=== PATIENT | male | born 1980 | race Two or more races ===

== ENCOUNTER 2023-04-01 09:39 | Inpatient (IN) | payer MEDICAID, OTHER ==
[~2023-04-01] VITALS: Ht 172.7 cm; Wt 69.6 kg
[2023-04-01 10:18] LABS: Basophils # (auto) 0 10 ^3/uL (0-0.2); Basophils % (auto) 0.4 % (0.0-2.0); Eosinophils # (auto) 0 10 ^3/uL (0-0.8); Eosinophils % (auto) 0.4 % (0.0-7.0); Hematocrit 43.1 % (41.0-53.0); Hemoglobin 14.5 g/dL (13.5-17.5); Lymphocytes # (auto) 2.1 10 ^3/uL (0.4-5.4); Lymphocytes % (auto) 17.7 % (10.0-50.0); Mean Corpuscular Hemoglobin 30.7 pg (28.0-32.0); Mean Corpuscular Hgb Conc. 33.6 g/dL (32.0-36.0); Mean Corpuscular Volume 91.3 fL (80.0-100.0); Monocytes # (auto) 0.9 10 ^3/uL (0-1.3); Monocytes % (auto) 7.7 % (0.0-12.0); Neutrophils # (auto) 8.7 10 ^3/uL (1.6-8.6); Neutrophils % (auto) 73.8 % (37.0-80.0); Nucleated Red Blood Cells % 0.1 %; Red Blood Cells 4.72 10^6/uL (4.5-5.90); Red Cell Distribution Width 14.2 % (11.8-14.3); White Blood Cell 11.7 10^3/uL (4.4-10.8)
[2023-04-01 10:57] LABS: Alanine Aminotransferase 42 U/L (7-40); Alkaline Phosphatase 62 U/L (46-116); Anion Gap 7 (5-15); Aspartate Aminotransferase 26 U/L (13-40); BUN/Creatinine Ratio 16.1 (10.0-20.0); Blood Urea Nitrogen 14 mg/dL (9-23); Calcium 8.7 mg/dL (8.7-10.4); Carbon Dioxide 26 mmol/L (20-30); Chloride 105 mmol/L (98-107); Glucose 103 mg/dL (74-106); Potassium 4.5 mmol/L (3.5-5.1); Sodium 138 mmol/L (136-145)
[2023-04-01 10:58] LABS: Bilirubin, Total 0.6 mg/dL (0.2-1.0); Total Protein 6.6 g/dL (5.7-8.2)
[2023-04-01 11:03] LABS: Urine Bacteria NONE SEEN /hpf (None Seen); Urine Blood Negative /uL (Negative); Urine Clarity Clear (Clear); Urine Color Yellow (Yellow); Urine Mucus FEW (None Seen); Urine Protein, UAD TRACE (Negative); Urine Specific Gravity 1.028 (1.001-1.035); Urine WBC 1 /hpf (0 - 3); Urine pH 6.5 (5.0-8.0)
[2023-04-01 12:12] LABS: Amphetamine Screen, Urine Pos (NEGATIVE); Barbiturate Scree,Urine Neg (NEGATIVE); Benzodiazephine Screen, Urine Neg (NEGATIVE); Cocaine Screen, Urine Neg (NEGATIVE)
[2023-04-01 12:13] LABS: Cannabinoid Screen, Urine Pos (NEGATIVE); Opiate Scree,Urine Neg (NEGATIVE); Phencyclidine Screen, Urine Neg (NEGATIVE)
[2023-04-01] MEDS ORDERED: cefTRIAXone 1GM/50ML D5W 50 ML IV ONE (13:00)
[2023-04-01] MEDS ORDERED: IOHEXOL 350 MG/ML 100ML IJ ONE (13:14)
[2023-04-01] MEDS ORDERED: ACETAMINOPHEN 325 MG TAB PO PRN ×2 (18:30→19:30)
[2023-04-01] MEDS: SODIUM CHLORIDE 0.9% 1,000 ML IV SCH ×2 (18:30→21:42)
[2023-04-01 19:54] LABS: Triglycerides 91 mg/dL (< 150)
[2023-04-01 19:55] LABS: LDL Cholesterol 107 mg/dL (< 100)
[2023-04-01 19:56] LABS: Cholesterol 140 mg/dL (< 200); HDL Cholesterol 31 mg/dL (40-59)
[2023-04-01] MEDS ORDERED: ENOXAPARIN SOD 100 MG/1 ML SYRINGE SC SCH (22:00)
[2023-04-01] MEDS ORDERED: ASPirin 325 MG TAB PO ONE (22:15)
[2023-04-01 22:23] LABS: COVID19 ANTIGEN SOFIA FIA NEGATIVE (NEGATIVE)
[2023-04-01 23:30] VITALS: PULSE 110; RESP 22; O2SAT 90
[2023-04-02] VITALS (12 sets, daily range): BP systolic 118–138; BP diastolic 97–99; PULSE 101–134; RESP 16–24; TEMP 98.4; O2SAT 93–100
[2023-04-02] MEDS: SODIUM CHLORIDE 0.9% 1,000 ML IV SCH ×3 (01:08→22:36)
[2023-04-02 02:01] LABS: Base Excess 0.6 mmol/L (-2.0-2.0)
[2023-04-02 06:17] LABS: Basophils # (auto) 0 10 ^3/uL (0-0.2); Eosinophils # (auto) 0.1 10 ^3/uL (0-0.8); Eosinophils % (auto) 0.9 % (0.0-7.0); Monocytes # (auto) 1.1 10 ^3/uL (0-1.3); Monocytes % (auto) 8.6 % (0.0-12.0); Nucleated Red Blood Cells % 0.1 %
[2023-04-02 06:20] LABS: Basophils % (auto) 0.1 % (0.0-2.0); Hematocrit 44.6 % (41.0-53.0); Hemoglobin 14.1 g/dL (13.5-17.5); Lymphocytes # (auto) 2.2 10 ^3/uL (0.4-5.4); Lymphocytes % (auto) 17.7 % (10.0-50.0); Mean Corpuscular Hemoglobin 30.6 pg (28.0-32.0); Mean Corpuscular Hgb Conc. 31.5 g/dL (32.0-36.0); Neutrophils # (auto) 9.2 10 ^3/uL (1.6-8.6); Neutrophils % (auto) 72.7 % (37.0-80.0); Red Cell Distribution Width 15.3 % (11.8-14.3); White Blood Cell 12.7 10^3/uL (4.4-10.8)
[2023-04-02 06:26] LABS: Alanine Aminotransferase 36 U/L (7-40); Albumin 3.4 g/dL (3.2-4.8); Alkaline Phosphatase 57 U/L (46-116); Aspartate Aminotransferase 30 U/L (13-40); BUN/Creatinine Ratio 13.6 (10.0-20.0); Bilirubin, Total 0.3 mg/dL (0.2-1.0); Blood Urea Nitrogen 11 mg/dL (9-23); Carbon Dioxide 20 mmol/L (20-30); Glucose 89 mg/dL (74-106); Total Protein 5.8 g/dL (5.7-8.2)
[2023-04-02 06:42] LABS: Anion Gap 8 (5-15); Chloride 111 mmol/L (98-107); Potassium 4.7 mmol/L (3.5-5.1); Sodium 139 mmol/L (136-145)
[2023-04-02] MEDS: ALBUTEROL MEDNEB 2.5 mg/3ml NEB NEB PRN ×2 (07:51→11:52)
[2023-04-02] MEDS: IPRATROPIUM BROM 0.5 MG/2.5ML INH SOL NEB PRN ×2 (07:51→11:52)
[2023-04-02] MEDS ORDERED: hydrALAZINE HCL 20 MG/ML VL IV PRN (09:00)
[2023-04-02] MEDS ORDERED: ENOXAPARIN SOD 40 MG/0.4 ML SYRINGE SC SCH (10:00)
[2023-04-02] MEDS: cefTRIAXone 1GM/50ML D5W 50 ML IV SCH (10:29)
[2023-04-02] MEDS: ASPirin 81 mg TAB PO SCH (11:00)
[2023-04-02] MEDS: ENOXAPARIN SOD 80 MG/0.8ML SYRINGE SC SCH ×2 (11:01→22:18)
[2023-04-02] MEDS: AZITHROMYCIN 500MG/ 250ML 250 ML IV SCH (11:41)
[2023-04-02 17:10] LABS: Lactic Acid w/Reflex 2.4 mmol/L (0.4-2.0)
[2023-04-02] MEDS: HYDROcodone-ACET 5/325MG TAB PO PRN ×2 (17:45→22:17)
[2023-04-02] MEDS: METOPROLOL TARTRATE 25 MG TAB PO SCH (22:22)
[2023-04-02] MEDS ORDERED: FURO20TA3 PO (22:39)
[2023-04-03] VITALS (33 sets, daily range): BP systolic 90–124; BP diastolic 55–88; PULSE 87–120; RESP 16–36; TEMP 96.7–97.6; O2SAT 91–100
[2023-04-03] MEDS: HYDROcodone-ACET 5/325MG TAB PO PRN (02:57)
[2023-04-03 07:06] LABS: Basophils # (auto) 0.1 10 ^3/uL (0-0.2); Basophils % (auto) 0.6 % (0.0-2.0); Eosinophils # (auto) 0.1 10 ^3/uL (0-0.8); Eosinophils % (auto) 0.7 % (0.0-7.0); Hemoglobin 13.5 g/dL (13.5-17.5); Lymphocytes # (auto) 2.1 10 ^3/uL (0.4-5.4); Lymphocytes % (auto) 16.8 % (10.0-50.0); Mean Corpuscular Hemoglobin 30.5 pg (28.0-32.0); Mean Corpuscular Hgb Conc. 33.6 g/dL (32.0-36.0); Mean Corpuscular Volume 90.6 fL (80.0-100.0); Monocytes # (auto) 1.1 10 ^3/uL (0-1.3); Monocytes % (auto) 8.7 % (0.0-12.0); Neutrophils % (auto) 73.2 % (37.0-80.0); Red Blood Cells 4.42 10^6/uL (4.5-5.90); Red Cell Distribution Width 14.1 % (11.8-14.3); White Blood Cell 12.3 10^3/uL (4.4-10.8)
[2023-04-03 07:26] LABS: Alanine Aminotransferase 28 U/L (7-40); Albumin 2.7 g/dL (3.2-4.8); Alkaline Phosphatase 66 U/L (46-116); Anion Gap 11 (5-15); Aspartate Aminotransferase 15 U/L (13-40); BUN/Creatinine Ratio 33.3 (10.0-20.0); Blood Urea Nitrogen 17 mg/dL (9-23); Calcium 6.5 mg/dL (8.5-10.1); Carbon Dioxide 19 mmol/L (20-30); Chloride 108 mmol/L (98-107); Glucose 81 mg/dL (74-106); Sodium 138 mmol/L (136-145)
[2023-04-03 07:27] LABS: Bilirubin, Total 0.5 mg/dL (0.2-1.0); Total Protein 4.3 g/dL (5.7-8.2)
[2023-04-03] MEDS: cefTRIAXone 1GM/50ML D5W 50 ML IV SCH (08:59)
[2023-04-03] MEDS: AZITHROMYCIN 500MG/ 250ML 250 ML IV SCH (08:59)
[2023-04-03] MEDS: ENOXAPARIN SOD 80 MG/0.8ML SYRINGE SC SCH ×2 (08:59→21:46)
[2023-04-03] MEDS: PANTOPRAZOLE 40 MG TAB PO SCH (09:00)
[2023-04-03] MEDS: ASPirin 81 mg TAB PO SCH (09:00)
[2023-04-03] MEDS: METOPROLOL TARTRATE 25 MG TAB PO SCH ×2 (09:00→21:46)
[2023-04-03] MEDS: SODIUM CHLORIDE 0.9% 1,000 ML IV SCH (09:01)
[2023-04-03] MEDS: IPRATROPIUM BROM 0.5 MG/2.5ML INH SOL NEB PRN (11:36)
[2023-04-03] MEDS: ALBUTEROL MEDNEB 2.5 mg/3ml NEB NEB PRN (11:36)
[2023-04-03] MEDS ORDERED: LORazepam 2MG/ML-1ML VIAL IV ONE (11:45)
[2023-04-03 13:01] LABS: Base Excess -6.4 mmol/L (-2.0-2.0)
[2023-04-03] MEDS ORDERED: ETOMIDATE (2MG/ML) 20ML VIAL IV ONE (14:11)
[2023-04-03] MEDS ORDERED: ROCURONIUM 10MG/ML 10ML VIAL IV ONE (14:11)
[2023-04-03] MEDS ORDERED: fentaNYL Drip 2500mCg/250mlNS 0 ML IV ONE (14:13)
[2023-04-03] MEDS ORDERED: MIDAZOLAM DRIP 50 mg/50mL 0 ML IV ONE (14:13)
[2023-04-03] MEDS ORDERED: LIDOCAINE 2%HCL (LOCAL ANESTH.) INJ 20ML MDV ONE (16:37)
[2023-04-03] MEDS ORDERED: IODIXANOL 320MG/ML 100ML BTL IV ONE (16:37)
[2023-04-03] MEDS ORDERED: fentaNYL CITRATE 100 MCG/2 ML VL ONE (16:46)
[2023-04-03] MEDS ORDERED: MIDAZOLAM HCL 2MG/2ML 2ml VIAL (1mg/ml) ONE (16:46)
[2023-04-03] MEDS ORDERED: ANGIOMAX 250 MG VIAL IV ONE (16:46)
[2023-04-03] MEDS ORDERED: SODIUM CHL 0.9% 0 ML ONE (16:46)
[2023-04-03] MEDS ORDERED: HEPARIN SODIUM (PORCINE) 5000 UNITS/ML 1ML VIAL ONE (16:46)
[2023-04-03] MEDS ORDERED: VERAPAMIL 2.5MG/ML INJ 2ML VIAL IV ONE (16:47)
[2023-04-03] MEDS ORDERED: FUROSEMIDE 20 MG/2 ML VIAL ONE ×2 (17:12→17:13)
[2023-04-03] MEDS ORDERED: DOBUTamine 1000MCG/ML 250 ML IV ONE (17:13)
[2023-04-03] MEDS: FUROSEMIDE 20 MG/2 ML VIAL IV SCH (20:43)
[2023-04-03] MEDS: DOBUTamine 1000MCG/ML 250 ML IV SCH (20:45)
[2023-04-03] MEDS ORDERED: SACUBITRIL-VALSARTAN 24mg/26mg TAB PO SCH (22:00)
[2023-04-04] VITALS (101 sets, daily range): BP systolic 64–128; BP diastolic 41–93; PULSE 83–117; RESP 12–36; TEMP 97–98.1; O2SAT 79–100
[2023-04-04] MEDS: DOBUTamine 1000MCG/ML 250 ML IV SCH ×3 (04:57→21:26)
[2023-04-04 05:16] LABS: Basophils # (auto) 0 10 ^3/uL (0-0.2); Basophils % (auto) 0.4 % (0.0-2.0); Eosinophils # (auto) 0.1 10 ^3/uL (0-0.8); Eosinophils % (auto) 0.6 % (0.0-7.0); Hematocrit 38.9 % (41.0-53.0); Hemoglobin 12.9 g/dL (13.5-17.5); Lymphocytes # (auto) 2.7 10 ^3/uL (0.4-5.4); Lymphocytes % (auto) 22.2 % (10.0-50.0); Mean Corpuscular Hgb Conc. 33.3 g/dL (32.0-36.0); Mean Corpuscular Volume 90.1 fL (80.0-100.0); Monocytes # (auto) 1.3 10 ^3/uL (0-1.3); Monocytes % (auto) 10.3 % (0.0-12.0); Neutrophils # (auto) 8.1 10 ^3/uL (1.6-8.6); Neutrophils % (auto) 66.5 % (37.0-80.0); Nucleated Red Blood Cells % 0.1 %; Red Blood Cells 4.31 10^6/uL (4.5-5.90); Red Cell Distribution Width 14.2 % (11.8-14.3); White Blood Cell 12.2 10^3/uL (4.4-10.8)
[2023-04-04 05:33] LABS: Alanine Aminotransferase 337 U/L (7-40); Albumin 3.2 g/dL (3.2-4.8); Alkaline Phosphatase 53 U/L (46-116); Anion Gap 8 (5-15); Aspartate Aminotransferase 391 U/L (13-40); BUN/Creatinine Ratio 19.4 (10.0-20.0); Bilirubin, Total 0.7 mg/dL (0.2-1.0); Blood Urea Nitrogen 18 mg/dL (9-23); Calcium 7.6 mg/dL (8.7-10.4); Carbon Dioxide 26 mmol/L (20-30); Chloride 105 mmol/L (98-107); Glucose 93 mg/dL (74-106); Sodium 139 mmol/L (136-145); Total Protein 5.3 g/dL (5.7-8.2)
[2023-04-04] MEDS: FUROSEMIDE 20 MG/2 ML VIAL IV SCH ×2 (06:31→18:41)
[2023-04-04] MEDS: EMPAGLIFLOZIN 10 MG TAB PO SCH (06:32)
[2023-04-04] MEDS: SODIUM CHLORIDE 0.9% 1,000 ML IV SCH (06:49)
[2023-04-04] MEDS: ASPirin 81 mg TAB PO SCH (09:48)
[2023-04-04] MEDS: cefTRIAXone 1GM/50ML D5W 50 ML IV SCH (09:48)
[2023-04-04] MEDS: PANTOPRAZOLE 40 MG TAB PO SCH (09:48)
[2023-04-04] MEDS: METOPROLOL TARTRATE 25 MG TAB PO SCH (09:48)
[2023-04-04] MEDS: AZITHROMYCIN 500MG/ 250ML 250 ML IV SCH (10:00)
[2023-04-04] MEDS: NOREPINEPHRINE 8 MG/250ML KIT 250 ML IV SCH ×2 (11:30→20:57)
[2023-04-04] MEDS ORDERED: NOREPINEPHRINE 8 MG/250ML KIT 250 ML IV ONE (11:32)
[2023-04-04] MEDS: ALBUTEROL MEDNEB 2.5 mg/3ml NEB NEB PRN (12:08)
[2023-04-04] MEDS: IPRATROPIUM BROM 0.5 MG/2.5ML INH SOL NEB PRN (12:08)
[2023-04-04 13:24] LABS: INR 1.19 (0.9-1.15); Partial Thromboplastin Time 26.6 SEC (24.5-34.5); Prothrombin Time 12.4 sec (9.3-11.8)
[2023-04-04] MEDS ORDERED: LIDOCAINE 1% (LOCAL ANESTH.) PF 5ml SDV ID ONE (15:45)
[2023-04-05] VITALS (68 sets, daily range): BP systolic 91–131; BP diastolic 53–95; PULSE 99–121; RESP 11–34; TEMP 97.5–98.7; O2SAT 88–100
[2023-04-05 05:12] LABS: Basophils # (auto) 0 10 ^3/uL (0-0.2); Basophils % (auto) 0.4 % (0.0-2.0); Eosinophils # (auto) 0.1 10 ^3/uL (0-0.8); Hematocrit 39.1 % (41.0-53.0); Hemoglobin 12.8 g/dL (13.5-17.5); Lymphocytes # (auto) 1.6 10 ^3/uL (0.4-5.4); Lymphocytes % (auto) 13.6 % (10.0-50.0); Mean Corpuscular Hemoglobin 29.7 pg (28.0-32.0); Mean Corpuscular Hgb Conc. 32.8 g/dL (32.0-36.0); Mean Corpuscular Volume 90.6 fL (80.0-100.0); Monocytes % (auto) 8.7 % (0.0-12.0); Neutrophils # (auto) 8.7 10 ^3/uL (1.6-8.6); Neutrophils % (auto) 76.3 % (37.0-80.0); Nucleated Red Blood Cells % 0.1 %; Red Blood Cells 4.32 10^6/uL (4.5-5.90); Red Cell Distribution Width 14.4 % (11.8-14.3); White Blood Cell 11.4 10^3/uL (4.4-10.8)
[2023-04-05 05:25] LABS: Alanine Aminotransferase 313 U/L (7-40); Albumin 3.2 g/dL (3.2-4.8); Alkaline Phosphatase 61 U/L (46-116); Calcium 8.1 mg/dL (8.5-10.1); Carbon Dioxide 31 mmol/L (20-30); Chloride 107 mmol/L (98-107); Glucose 92 mg/dL (74-106)
[2023-04-05 05:26] LABS: Anion Gap 3 (5-15); Aspartate Aminotransferase 152 U/L (13-40); BUN/Creatinine Ratio 19.6 (10.0-20.0); Bilirubin, Total 0.3 mg/dL (0.2-1.0); Blood Urea Nitrogen 18 mg/dL (9-23); Potassium 4.2 mmol/L (3.5-5.1); Sodium 141 mmol/L (136-145); Total Protein 5.4 g/dL (5.7-8.2)
[2023-04-05] MEDS: EMPAGLIFLOZIN 10 MG TAB PO SCH (06:44)
[2023-04-05] MEDS: FUROSEMIDE 20 MG/2 ML VIAL IV SCH ×2 (06:45→18:00)
[2023-04-05] MEDS: SODIUM CHLOR 0.9% PF (SALINE LOCK) 10ML VIAL/SYR IV SCH ×3 (06:52→21:45)
[2023-04-05] MEDS: ASPirin 81 mg TAB PO SCH (07:58)
[2023-04-05] MEDS: cefTRIAXone 1GM/50ML D5W 50 ML IV SCH (07:59)
[2023-04-05] MEDS: PANTOPRAZOLE 40 MG TAB PO SCH (07:59)
[2023-04-05] MEDS: AZITHROMYCIN 500MG/ 250ML 250 ML IV SCH (07:59)
[2023-04-05] MEDS: SACUBITRIL-VALSARTAN 24mg/26mg TAB PO SCH (21:41)
[2023-04-06] VITALS (12 sets, daily range): BP systolic 104–110; BP diastolic 66–79; PULSE 97–112; RESP 17–20; TEMP 98–98.9; O2SAT 95–100
[2023-04-06 06:29] LABS: Basophils # (auto) 0.1 10 ^3/uL (0-0.2); Basophils % (auto) 0.7 % (0.0-2.0); Eosinophils # (auto) 0.2 10 ^3/uL (0-0.8); Eosinophils % (auto) 2.2 % (0.0-7.0); Hematocrit 42.6 % (41.0-53.0); Hemoglobin 14.3 g/dL (13.5-17.5); Lymphocytes # (auto) 1.7 10 ^3/uL (0.4-5.4); Lymphocytes % (auto) 17.4 % (10.0-50.0); Mean Corpuscular Hemoglobin 30.7 pg (28.0-32.0); Mean Corpuscular Hgb Conc. 33.6 g/dL (32.0-36.0); Mean Corpuscular Volume 91.3 fL (80.0-100.0); Monocytes # (auto) 0.9 10 ^3/uL (0-1.3); Monocytes % (auto) 8.9 % (0.0-12.0); Neutrophils # (auto) 6.8 10 ^3/uL (1.6-8.6); Neutrophils % (auto) 70.8 % (37.0-80.0); Nucleated Red Blood Cells % 0.1 %; Red Blood Cells 4.66 10^6/uL (4.5-5.90); Red Cell Distribution Width 14.2 % (11.8-14.3); White Blood Cell 9.6 10^3/uL (4.4-10.8)
[2023-04-06] MEDS: EMPAGLIFLOZIN 10 MG TAB PO SCH (06:33)
[2023-04-06] MEDS: FUROSEMIDE 20 MG/2 ML VIAL IV SCH ×2 (06:33→17:32)
[2023-04-06 06:41] LABS: Chloride 106 mmol/L (98-107); Potassium 4.6 mmol/L (3.5-5.1); Sodium 140 mmol/L (136-145)
[2023-04-06 06:42] LABS: Anion Gap 6 (5-15); Calcium 8.6 mg/dL (8.5-10.1); Carbon Dioxide 28 mmol/L (20-30)
[2023-04-06 06:47] LABS: BUN/Creatinine Ratio 18.2 (10.0-20.0); Blood Urea Nitrogen 14 mg/dL (9-23); Glucose 90 mg/dL (74-106)
[2023-04-06] MEDS: PANTOPRAZOLE 40 MG TAB PO SCH (10:49)
[2023-04-06] MEDS: SPIRONOLACTONE 25 MG TAB PO SCH (10:49)
[2023-04-06] MEDS: SACUBITRIL-VALSARTAN 24mg/26mg TAB PO SCH ×2 (10:49→22:06)
[2023-04-06] MEDS: METOPROLOL TARTRATE 25 MG TAB PO SCH ×2 (10:51→22:06)
[2023-04-06] MEDS: SODIUM CHLOR 0.9% PF (SALINE LOCK) 10ML VIAL/SYR IV SCH ×2 (10:52→22:07)
[2023-04-06] MEDS: cefTRIAXone 1GM/50ML D5W 50 ML IV SCH (10:59)
[2023-04-06] MEDS: AZITHROMYCIN 500MG/ 250ML 250 ML IV SCH (11:05)
[2023-04-07] VITALS (7 sets, daily range): BP systolic 99–109; BP diastolic 72–75; PULSE 94–106; RESP 18–19; TEMP 98; O2SAT 98–100
[2023-04-07 06:02] LABS: Chloride 105 mmol/L (98-107); Potassium 4.7 mmol/L (3.5-5.1); Sodium 138 mmol/L (136-145)
[2023-04-07 06:03] LABS: Anion Gap 5 (5-15); Carbon Dioxide 28 mmol/L (20-30)
[2023-04-07 06:04] LABS: Calcium 8.6 mg/dL (8.7-10.4)
[2023-04-07 06:08] LABS: BUN/Creatinine Ratio 17.6 (10.0-20.0); Blood Urea Nitrogen 15 mg/dL (9-23); Glucose 92 mg/dL (74-106)
[2023-04-07 06:10] LABS: Basophils # (auto) 0.1 10 ^3/uL (0-0.2); Basophils % (auto) 0.7 % (0.0-2.0); Eosinophils # (auto) 0.3 10 ^3/uL (0-0.8); Eosinophils % (auto) 2.3 % (0.0-7.0); Hematocrit 47.1 % (41.0-53.0); Hemoglobin 15.3 g/dL (13.5-17.5); Lymphocytes % (auto) 18.1 % (10.0-50.0); Mean Corpuscular Hemoglobin 29.9 pg (28.0-32.0); Mean Corpuscular Hgb Conc. 32.5 g/dL (32.0-36.0); Mean Corpuscular Volume 91.8 fL (80.0-100.0); Monocytes # (auto) 1.1 10 ^3/uL (0-1.3); Monocytes % (auto) 10.2 % (0.0-12.0); Neutrophils # (auto) 7.4 10 ^3/uL (1.6-8.6); Neutrophils % (auto) 68.7 % (37.0-80.0); Nucleated Red Blood Cells % 0.1 %; Red Blood Cells 5.14 10^6/uL (4.5-5.90); Red Cell Distribution Width 14.9 % (11.8-14.3); White Blood Cell 10.8 10^3/uL (4.4-10.8)
[2023-04-07] MEDS: FUROSEMIDE 20 MG/2 ML VIAL IV SCH (06:47)
[2023-04-07] MEDS: EMPAGLIFLOZIN 10 MG TAB PO SCH (06:47)
[2023-04-07] MEDS ORDERED: AZITHROMYCIN 250 MG TAB PO SCH (10:00)
[2023-04-07] MEDS: SACUBITRIL-VALSARTAN 24mg/26mg TAB PO SCH (10:00)
[2023-04-07] MEDS: SPIRONOLACTONE 25 MG TAB PO SCH (10:12)
[2023-04-07] MEDS: PANTOPRAZOLE 40 MG TAB PO SCH (10:12)
[2023-04-07] MEDS: SODIUM CHLOR 0.9% PF (SALINE LOCK) 10ML VIAL/SYR IV SCH (10:12)
[2023-04-07] MEDS: cefTRIAXone 1GM/50ML D5W 50 ML IV SCH (10:13)
[2023-04-07] MEDS: METOPROLOL TARTRATE 25 MG TAB PO SCH (10:23)
[2023-04-07] MEDS ORDERED: AZIT-74 PO (10:39)
[2023-04-07] MEDS ORDERED: SACU1TAB PO (10:40)
[2023-04-07] MEDS ORDERED: EMPA1TAB PO (10:40)
[2023-04-07] MEDS ORDERED: MET25T PO (10:40)
[2023-04-07] MEDS ORDERED: SPIR25TA PO (10:40)
[2023-04-07] MEDS ORDERED: FURO20TA3 PO (10:41)
== END 2023-04-07 13:37 | disposition home or self-care (01) | DRG 720 ==
LOC: EDBD 09:39 → ER 09:39 → OVERFLOW 18:25 → TELE 19:14 → TELE-EAST 04-02 21:32 → DOU IN ICU 04-03 19:28 → ICU CENTRL 04-04 18:31 → TELE-EAST 04-05 15:43
PROVIDERS: ADMIT Internal Medicine; ATTEND Student in an Organized Health Care Education/Training Program
PROC: 5A09357 Assistance with Respiratory Ventilation, Less than 24 Consecutive Hours, Continuous Positive Airway Pressure (ICD-10-PCS; 2023-04-02)
PROC: 4A023N7 Measurement of Cardiac Sampling and Pressure, Left Heart, Percutaneous Approach (ICD-10-PCS; principal; 2023-04-03)
PROC: B211YZZ Fluoroscopy of Multiple Coronary Arteries using Other Contrast (ICD-10-PCS; 2023-04-03)
PROC: B215YZZ Fluoroscopy of Left Heart using Other Contrast (ICD-10-PCS; 2023-04-03)
PROC: 5A09357 Assistance with Respiratory Ventilation, Less than 24 Consecutive Hours, Continuous Positive Airway Pressure (ICD-10-PCS; 2023-04-03)
PROC: 02HV33Z Insertion of Infusion Device into Superior Vena Cava, Percutaneous Approach (ICD-10-PCS; 2023-04-04)
PROC: B548ZZA Ultrasonography of Superior Vena Cava, Guidance (ICD-10-PCS; 2023-04-04)
PROC: 5A09357 Assistance with Respiratory Ventilation, Less than 24 Consecutive Hours, Continuous Positive Airway Pressure (ICD-10-PCS; 2023-04-04)
DX: A41.9 Sepsis, unspecified organism (principal); J96.01 Acute respiratory failure with hypoxia; R57.0 Cardiogenic shock; I50.23 Acute on chronic systolic (congestive) heart failure; G92.8 Other toxic encephalopathy; J15.69 Pneumonia due to other Gram-negative bacteria; I11.0 Hypertensive heart disease with heart failure; R65.20 Severe sepsis without septic shock; T43.651A Poisoning by methamphetamines accidental (unintentional), initial encounter; Y92.89 Other specified places as the place of occurrence of the external cause; I21.A1 Myocardial infarction type 2; I42.0 Dilated cardiomyopathy; Z20.822 Contact with and (suspected) exposure to COVID-19; F19.10 Other psychoactive substance abuse, uncomplicated; K21.9 Gastro-esophageal reflux disease without esophagitis; R74.01 Elevation of levels of liver transaminase levels; F15.13 Other stimulant abuse with withdrawal; Z83.3 Family history of diabetes mellitus; Z82.49 Family history of ischemic heart disease and other diseases of the circulatory system; Z71.6 Tobacco abuse counseling; Z72.0 Tobacco use; J15.9 Unspecified bacterial pneumonia
CPT/HCPCS: 36415; 36569; 36600; 71045; 71275; 80048; 80053; 80061; 80307; 81001; 82805; 83605; 83880; 84443; 84484; 85025; 85379; 85610; 85730; 87040; 87081; 87340; 87426; 93005; 93306; 93458; 94640; 94660; 96365; 99152; G0378; J0696; J2250; Q9967